=== PATIENT | female | born 1995 | race African-American/Black ===

== ENCOUNTER 2023-07-29 10:35 | Emergency (ER) | payer MEDICAID, OTHER ==
[~2023-07-29] VITALS: Ht 154.9 cm; Wt 32.8 kg
[2023-07-29 11:30] VITALS: BP 92/64; PULSE 110; RESP 16; TEMP 100; O2SAT 97
[2023-07-29] MEDS ORDERED: AZIT-81 PO (11:50)
[2023-07-29] MEDS ORDERED: PROM1SOL4 PO (11:50)
== END 2023-07-29 11:58 | disposition home or self-care (01) ==
LOC: ER 10:35
DX: J20.9 Acute bronchitis, unspecified (principal); J02.9 Acute pharyngitis, unspecified